=== PATIENT | female | born 1990 | race Caucasian/White ===

== ENCOUNTER 2023-04-08 07:31 | Outpatient (CLI) | payer OTHER ==
[2023-04-08 08:42] LABS: PROLACTIN 17.77 ng/mL
[2023-04-08 09:53] LABS: ESTIMATED AVERAGE GLUCOSE 97 mg/dL (70-100)
[2023-04-10 00:07] LABS: ESTRADIOL 41.2 pg/mL (.); PROGESTERONE 0.2 ng/mL (.)
[2023-04-10 17:08] LABS: FREE TESTOSTERONE(DIRECT) 6.1 pg/mL (0.0-4.2); SEX HORM BINDING GLOB SERUM 44.8 nmol/L (24.6-122.0)
== END 2023-04-08 07:32 | disposition home or self-care (01) ==
LOC: LAB 07:31
PROVIDERS: ATTEND Nurse Practitioner
DX: E28.2 Polycystic ovarian syndrome (principal); N92.6 Irregular menstruation, unspecified
CPT/HCPCS: 36415; 82397; 82627; 82670; 83001; 83002; 83036; 83498; 84144; 84146; 84270; 84402; 84403